=== PATIENT | female | born 1950 | race Two or more races ===

== ENCOUNTER → 2017-11-23 | Outpatient (CLI) | payer OTHER ==
[~2017-11-23] MED LIST: GABAPENTIN600 MG
== END | disposition home or self-care (01) ==
LOC: SONOGRAMA 14:19
DX: N30.11 Interstitial cystitis (chronic) with hematuria (principal)

== ENCOUNTER → 2018-05-16 | Outpatient (CLI) | payer OTHER | END | disposition home or self-care (01) | LOC: RAD 501 12:41 | DX: J30.1 Allergic rhinitis due to pollen (principal); J45.41 Moderate persistent asthma with (acute) exacerbation ==

== ENCOUNTER 2018-12-19 15:57 | Inpatient (IN) | payer OTHER ==
[~2018-12-19] VITALS: Ht 157.5 cm; Wt 63.5 kg
--- NOTE | 2018-12-19 16:50 | NUR ---
PTE SE RECIBE POR PAIN BODY PART EN EL AREA DE [place] Y PELVICO REFIERE PTE.
--- NOTE | 2018-12-19 18:36 | NUR ---
PACIENTE ALERTA Y ORIENTADA X3. SE ORIENTA SOBRE TX Y PROCEDIMIENTO A REALIZAR Y REFIERE ENTENDER. SE REALIZA MUESTRAS DE LABORATORIO BAJO MEDIDAS ASEPTICAS. CANALIZACION PATENTE Y JET DE EDEMA Y ERITEMA. SE ADMINISTRA MEDICAMENTOS TOÑA ORDEN MEDICA, FLAGYL 500MG IV, CIPRO 400MG IV Y REJI ORDENADO. SE MANTIENE BAJO OBSERVACION POR CAMBIOS SIGNIFICATIVOS.
[2018-12-23] MEDS ORDERED: MOXIFLOXACIN H400 MG PO (14:30)
[2018-12-23] MEDS ORDERED: ACIDOPHILUS X-1 EACH PO (14:31)
== END 2018-12-23 16:38 | disposition home or self-care (01) | DRG 392 ==
LOC: ER 15:57 → MEDJ 21:53
PROVIDERS: ADMIT Internal Medicine
PROC: 8E0ZXY6 Isolation (ICD-10-PCS; principal; 2018-12-19)
DX: K57.32 Diverticulitis of large intestine without perforation or abscess without bleeding (principal); K44.9 Diaphragmatic hernia without obstruction or gangrene; K29.00 Acute gastritis without bleeding

== ENCOUNTER 2019-03-26 13:23 | Outpatient (CLI) | payer OTHER ==
[~2019-03-26 13:23] MED LIST changes: +ACIDOPHILUS X-1 EACH PO; +MOXIFLOXACIN H400 MG PO
== END 2019-03-26 13:25 | disposition home or self-care (01) ==
LOC: RAD 13:23
DX: Z45.2 Encounter for adjustment and management of vascular access device (principal); C85.98 Non-Hodgkin lymphoma, unspecified, lymph nodes of multiple sites

== ENCOUNTER → 2019-12-30 | Outpatient (CLI) | payer OTHER | END | disposition home or self-care (01) | LOC: RAD → MRI 12:37 | DX: M25.561 Pain in right knee (principal); M25.562 Pain in left knee | CPT/HCPCS: 73721 ==

== ENCOUNTER 2020-08-12 02:00 | Outpatient (CLI) | payer OTHER | END 2020-08-12 18:00 | disposition home or self-care (01) | LOC: PPH VACUNA 02:00 | PROVIDERS: ATTEND Emergency Medicine Pediatric Emergency Medicine | DX: Z23 Encounter for immunization (principal) ==

== ENCOUNTER 2020-10-01 07:34 | Outpatient (CLI) | payer OTHER | END 2020-10-01 07:41 | disposition home or self-care (01) | LOC: NUCLEAR 07:34 | PROVIDERS: ATTEND Internal Medicine Cardiovascular Disease | DX: I20.9 Angina pectoris, unspecified (principal) | CPT/HCPCS: 78452; 93017; A9500; J0153 ==

== ENCOUNTER 2021-04-21 10:15 | Outpatient (CLI) | payer OTHER | END 2021-04-21 10:25 | disposition home or self-care (01) | LOC: PPH VACUNA 10:15 | PROVIDERS: ATTEND Emergency Medicine Pediatric Emergency Medicine | DX: Z23 Encounter for immunization (principal) ==

== ENCOUNTER 2022-04-03 12:54 | Outpatient (CLI) | payer OTHER | END 2022-04-03 13:10 | disposition home or self-care (01) | LOC: PPH VACUNA 12:54 | PROVIDERS: ATTEND Emergency Medicine Pediatric Emergency Medicine | DX: Z23 Encounter for immunization (principal) ==

== ENCOUNTER 2023-04-19 13:26 | Outpatient (CLI) | payer OTHER | END 2023-04-19 13:32 | disposition home or self-care (01) | LOC: RAD 13:26 | PROVIDERS: ATTEND Orthopaedic Surgery | DX: M25.551 Pain in right hip (principal); M25.552 Pain in left hip; M17.0 Bilateral primary osteoarthritis of knee ==